=== PATIENT | male | born 1950 | race Two or more races ===

== ENCOUNTER 2019-05-25 07:39 | Day surgery (SDC) | payer OTHER ==
[2019-05-24 10:17] VITALS: BMI 25.2
--- NOTE | 2019-05-25 10:20 | PN ---
Progress Note (short form) - Note Progress Note: [facility] [id number] [employer] utilized. Discussed colonoscopy findings with patient including rectum findings. He apparently had a recent transrectal biopsy of the prostate, likely accounting for the nodular mucosa noted on exam. he will be following up with his urologist.
[2019-05-25 11:24] VITALS: BP 150/80; PULSE 71; TEMP 99
--- NOTE | 2019-05-26 15:46 | PATH ---
Surgical Pathology Report Patient Name: ASHTYN ORTEGA [facility]. Rec. #: [id number] /Age/Gender: 1950 (Age: 68) / M Account: [id number] Location: ASU-ENDOSCOPY Taken: 05/25/2019 Received: 05/25/2019 Reported: 05/26/2019 Physicians: Tim Ramirez D.O. Specimen(s) Received A: CECUM B: RECTAL NODULE Clinical History Colon screening, rectal bleeding Postoperative diagnosis: Colon polyp, rectal nodule, hemorrhoids Final Diagnosis A. CECUM POLYP, BIOPSY: POLYPOID COLONIC MUCOSA WITH SURFACE HYPERPLASTIC CHANGE. B. RECTUM NODULE, BIOPSY: POLYPOID COLONIC MUCOSA WITH REACTIVE LYMPHOID AGGREGATE. SEE COMMENT. Comment: Multiple serial H&E stained levels have been examined. No evidence of carcinoma. Electronically Signed Ponhco Prakash M.D. Gross Description A. Received in formalin, labeled "polyp cecum" is a peterson, irregular portion of soft tissue measuring 0.4 cm. in greatest dimension. The specimen is submitted in toto in one cassette. B. Received in formalin, labeled "biopsy rectum" are 3 peterson, irregular portions of soft tissue ranging from 0.1-0.3 cm. in greatest dimension. The specimens are submitted in toto in one cassette. /05/25/2019 saudi/05/25/2019
== END 2019-05-25 11:24 | disposition home or self-care (01) ==
LOC: JASU-ENDO 07:39
PROVIDERS: ATTEND Internal Medicine Gastroenterology
PROC: 0DBP8ZX Excision of Rectum, Via Natural or Artificial Opening Endoscopic, Diagnostic (ICD-10-PCS; 2019-05-25)
PROC: 0DBH8ZX Excision of Cecum, Via Natural or Artificial Opening Endoscopic, Diagnostic (ICD-10-PCS; principal; 2019-05-25 08:15)
DX: Z12.11 Encounter for screening for malignant neoplasm of colon (principal); D12.0 Benign neoplasm of cecum; K62.1 Rectal polyp; K64.8 Other hemorrhoids
CPT/HCPCS: 82962; 88305-TC

== ENCOUNTER 2020-07-17 05:29 | Day surgery (SDC) | payer OTHER ==
[2020-07-05 14:58] VITALS: BMI 26.2
[~2020-07-17 05:29] MED LIST: ACETAMINOPHEN 325 MG TABLET (FP) PO PRN; CYCLOPENTOLATE HCL 1% OPHTH SOLN 2 ML BOTTLE OP SCH; KETOROLAC TROMETHAMINE 0.5% EYE DROP 1 DROP DROPS OP SCH; OFLOXACIN 0.3% OPHTHALMIC SOLUTION 5 ML BOTTLE OP SCH; PHENYLEPHRINE 2.5% OPHTH SOLN 15 ML BOTTLE OP SCH; TROPICAMIDE 1% OPHTH SOLN 15 ML BOTTLE OP SCH
[2020-07-17] MEDS ORDERED: BUPIVACAINE HCL/PF 0.75% 10 ML VIAL ONE (07:20)
[2020-07-17] MEDS ORDERED: POVIDONE-IODINE 5% OPHTHALMIC PREP 30 ML SOLUTION ONE (07:20)
[2020-07-17] MEDS ORDERED: CHONDROITIN SU A/HYALUR SOD 1 KIT ONE (07:20)
[2020-07-17] MEDS ORDERED: LIDOCAINE HCL/PF 2% SDV 5ML VIAL ONE (07:26)
[2020-07-17] MEDS ORDERED: LIDOCAINE HCL/PF 1% SDV 5ML VIAL ONE (07:27)
[2020-07-17] MEDS ORDERED: PHENYLEPHRINE/KETOROLAC 4 ML VIAL IO SCH (07:45)
[2020-07-17] MEDS ORDERED: OFLOXACIN 0.3% OPHTHALMIC SOLUTION 5 ML BOTTLE OD ONE ×3 (09:00→09:10)
[2020-07-17] MEDS ORDERED: TROPICAMIDE 1% OPHTH SOLN 15 ML BOTTLE OD ONE ×3 (09:00→09:10)
[2020-07-17] MEDS ORDERED: PHENYLEPHRINE 2.5% OPHTH SOLN 15 ML BOTTLE OD ONE ×3 (09:00→09:10)
[2020-07-17] MEDS ORDERED: CYCLOPENTOLATE HCL 1% OPHTH SOLN 2 ML BOTTLE OD ONE ×3 (09:00→09:10)
[2020-07-17] MEDS ORDERED: KETOROLAC TROMETHAMINE 0.5% EYE DROP 1 DROP DROPS OD ONE ×3 (09:00→09:10)
[2020-07-17] MEDS ORDERED: TROPICAMIDE 1% OPHTH SOLN 15 ML BOTTLE ONE (09:24)
[2020-07-17] MEDS ORDERED: KETOROLAC TROMETHAMINE 0.5% EYE DROP 1 DROP DROPS ONE (09:24)
[2020-07-17] MEDS ORDERED: CYCLOPENTOLATE HCL 1% OPHTH SOLN 2 ML BOTTLE ONE (09:24)
[2020-07-17] MEDS ORDERED: OFLOXACIN 0.3% OPHTHALMIC SOLUTION 5 ML BOTTLE ONE (09:25)
[2020-07-17] MEDS ORDERED: PHENYLEPHRINE 2.5% OPTHALMIC DROP BOTTLE ONE ×2 (09:25)
[2020-07-17] MEDS ORDERED: BUPIVACAINE HCL/PF 0.75% 10 ML VIAL NR ONE (11:22)
[2020-07-17] MEDS ORDERED: LIDOCAINE HCL/PF 2% SDV 5ML VIAL INF ONE (11:22)
[2020-07-17] MEDS ORDERED: POVIDONE-IODINE 5% OPHTHALMIC PREP 30 ML SOLUTION OD ONE (11:29)
[2020-07-17] MEDS ORDERED: BSS (NA/CA/MG/K) BALANCED SALT SOLUTION OPHTH SOLN 15 ML BOTTLE OD ONE (11:35)
[2020-07-17] MEDS ORDERED: CHONDROITIN SU A/HYALUR SOD 1 KIT IO ONE (11:37)
[2020-07-17] MEDS ORDERED: LIDOCAINE HCL 1% PRESERVATIVE FREE - 30ML VIAL IO ONE (11:37)
[2020-07-17] MEDS ORDERED: TRYPAN BLUE 0.5 ML DISP.SYRIN IO ONE (11:38)
[2020-07-17] MEDS ORDERED: PHENYLEPHRINE/KETOROLAC 4 ML VIAL IO ONE (11:44)
[2020-07-17 13:27] VITALS: BP 140/74; PULSE 76; TEMP 98.2
== END 2020-07-17 13:00 | disposition home or self-care (01) ==
LOC: JASU-SURG 05:29
PROVIDERS: ATTEND Ophthalmology
PROC: 08RK3JZ Replacement of Left Lens with Synthetic Substitute, Percutaneous Approach (ICD-10-PCS; principal; 2020-07-17 11:00)
DX: H26.9 Unspecified cataract (principal)
CPT/HCPCS: J1097